=== PATIENT | female | born 1995 | race Caucasian/White ===

== ENCOUNTER 2019-02-26 20:24 | Emergency (ER) | payer MEDICAID, OTHER ==
[~2019-02-26] VITALS: Ht 157.5 cm; Wt 72.0 kg
[~2019-02-26 20:24] MED LIST: DIPH-423 PO; FAMO-128 PO; NITR100C6 PO; PNV11TAB PO
[2019-02-26 20:41] VITALS: BP 113/68
[2019-02-26 21:04] LABS: URINE HCG NEGATIVE (NEG)
[2019-02-26 21:09] LABS: CLARITY,URINE CLEAR (Clear); COLOR,URINE YELLOW (Yellow); GLUCOSE, URINE NEGATIVE (Neg); KETONES,URINE 40 mg/dl (Neg); LEUKOCYTE ESTERASE ,URINE NEGATIVE (Neg); NITRITES, URINE NEGATIVE (Neg); OCCULT BLOOD,URINE NEGATIVE (Neg); PROTEIN,URINE NEGATIVE (Neg); UROBILINOGEN,URINE 0.2 E.U/dL (0.2-1.0)
[2019-02-26 21:10] LABS: UA COLLECTION TYPE CLN CATCH MIDSTREAM
[2019-02-26 22:33] LABS: BASOPHILS % (AUTO) 0.2 % (0-1); EOSINOPHILS % (AUTO) 0.2 % (0-6); HEMATOCRIT 33.8 % (35.0-45.0); HEMOGLOBIN 11.4 g/dl (12.0-16.0); LYMPHOCYTES % (AUTO) 16.6 % (21-51); MEAN CORPUSCULAR HEMOGLOBIN 28.3 PG (27.0-31.0); MEAN CORPUSCULAR HGB CONC 33.8 g/dL (33.0-36.5); MEAN CORPUSCULAR VOLUME 83.7 FL (78-98); MEAN PLATELET VOLUME 8.1 FL (7.4-10.4); MONOCYTES # (AUTO) 0.1 X10'3 (0-0.9); MONOCYTES % (AUTO) 2.1 % (2-12); NEUTROPHILS # (AUTO) 5.1 X10'3 (1.8-7.7); NEUTROPHILS % (AUTO) 80.9 % (42-75); PLATELET COUNT 200 X10'3 (140-440); RED BLOOD COUNT 4.03 X10'6 (4.20-5.60); RED CELL DISTRIBUTION WIDTH 15.1 % (11.5-14.5); WHITE BLOOD COUNT 6.3 X10'3 (4.5-11.0)
[2019-02-26 22:43] LABS: ALANINE AMINOTRANSFERASE 27 U/L (12-78); ALBUMIN 4.3 G/DL (3.4-5.0); ALKALINE PHOSPHATASE 37 IU/L (46-116); ANION GAP 9 (8-16); ASPARTATE AMINO TRANSFERASE 17 U/L (10-37); BLOOD UREA NITROGEN 20 MG/DL (7-18); CALCIUM 9.5 MG/DL (8.5-10.1); CHLORIDE 104 MMOL/L (99-107); CREATININE 0.69 MG/DL (0.40-0.90); GLUCOSE 110 MG/DL (70-104); POTASSIUM 4.4 MMOL/L (3.5-5.1); SODIUM 138 MMOL/L (135-145); TOTAL CARBON DIOXIDE 24.8 MMOL/L (24-32); TOTAL PROTEIN 8.5 G/DL (6.4-8.2); eGFR > 90 ML/MIN
[2019-02-26] MEDS ORDERED: HYDR-4383 PO (23:01)
== END 2019-02-26 23:28 | disposition home or self-care (01) ==
LOC: ER 20:25
DX: N83.201 Unspecified ovarian cyst, right side (principal); R55 Syncope and collapse; Z79.899 Other long term (current) drug therapy
CPT/HCPCS: 36415; 74176; 80053; 81003; 81025; 85025; 99284

== ENCOUNTER 2019-10-07 12:55 | Emergency (ER) | payer OTHER ==
[~2019-10-07] VITALS: Ht 157.5 cm; Wt 81.2 kg
[~2019-10-07 12:55] MED LIST changes: +HYDR-4383 PO
[2019-10-07 13:00] VITALS: BP 107/57
[2019-10-07] MEDS ORDERED: LORazepam 2 mg/ml vial IM ONE (13:20)
== END 2019-10-07 14:35 | disposition home or self-care (01) ==
LOC: ER 12:55
DX: F41.0 Panic disorder [episodic paroxysmal anxiety] (principal); Z79.899 Other long term (current) drug therapy
CPT/HCPCS: 96372; 99284; J2060

== ENCOUNTER 2023-04-04 14:56 | Emergency (ER) | payer OTHER ==
[~2023-04-04] VITALS: Ht 157.5 cm; Wt 72.7 kg
[2023-04-04 15:17] VITALS: BP 108/66
[2023-04-04] MEDS ORDERED: venlafaxine XR 75mg capsule (Q24H) PO STA (16:28)
[2023-04-04] MEDS ORDERED: VENL150C4 PO (16:31)
== END 2023-04-04 16:45 | disposition home or self-care (01) ==
LOC: ER 14:57
DX: F32.A Depression, unspecified (principal); Z76.0 Encounter for issue of repeat prescription
CPT/HCPCS: 99283